=== PATIENT | male | born 1975 | race Hispanic/Latino ===

== ENCOUNTER 2021-04-21 14:50 | Inpatient (IN) | payer SELFPAY ==
[~2021-04-21] VITALS: Ht 180.3 cm; Wt 100.2 kg
[2021-04-21 15:25] VITALS: BP 134/77
[2021-04-21 15:28] LABS: BASOPHILS % (AUTO) 0.4 % (0.0-5.0); EOSINOPHILS % (AUTO) 0.2 % (0.0-8.0); HEMATOCRIT 45.5 % (42-54); LYMPHOCYTES % (AUTO) 12.1 % (21.0-51.0); MEAN CORPUSCULAR HEMOGLOBIN 31.6 pg (27.0-33.0); MEAN CORPUSCULAR HGB CONC 34.7 g/dL (32.0-36.0); MONOCYTES % (AUTO) 6.5 % (3.0-13.0); NEUTROPHILS % (AUTO) 80.2 % (40.0-77.0); PLATELET COUNT (AUTO) 265 K/uL (130-400); RED CELL DISTRIBUTION WIDTH 12.4 % (11.0-15.5); WHITE BLOOD COUNT (AUTO) 16.6 K/uL (4.8-10.8)
[2021-04-21] MEDS ORDERED: 0.9%NACL 50ML IV SCH (15:30)
[2021-04-21] MEDS ORDERED: ZOSYN 3.375GM +NS 50ML IV SCH ×2 (15:30→18:00)
[2021-04-21 15:46] LABS: ALBUMIN 3.4 g/dL (3.5-5.0); BILIRUBIN,TOTAL 0.4 mg/dL (0.2-1.0); CRP QUANTITATIVE 127.6 mg/L (0.00-9.0); POTASSIUM 3.5 mmol/L (3.5-5.1); TOTAL PROTEIN, SERUM 7.9 g/dL (6.0-8.3)
[2021-04-21] MEDS ORDERED: IOHEXOL-350 75 ML VIAL IV ONE (15:52)
[2021-04-21] MEDS ORDERED: 0.9%NACL 1000ML 1,000 ML IV ONE (16:00)
[2021-04-21] MEDS ORDERED: INSULIN HUMULIN R 100 UNIT/ML 3ML IV ONE (16:00)
[2021-04-21 16:12] LABS: APPEARANCE,URINE CLEAR (CLEAR); BILIRUBIN,URINE NEGATIVE (NEGATIVE); COLOR,URINE YELLOW (YELLOW); GLUCOSE, URINE (UA) >=1000 mg/dL (NEGATIVE); KETONES,URINE >=80 mg/dL (NEGATIVE); LEUKOCYTE ESTERASE ,URINE NEGATIVE (NEGATIVE); NITRATE,URINE NEGATIVE (NEGATIVE); OCCULT BLOOD,URINE SMALL (NEGATIVE); PH,URINE 5.5 (5.0-8.0); PROTEIN,URINE NEGATIVE (NEGATIVE); UROBILINOGEN,URINE 0.2 mg/dL (0.2-1.0)
[2021-04-21 16:20] LABS: BACTERIA,URINE None Seen /HPF (None Seen); RBC,URINE None Seen /HPF (0-1); SQUAMOUS EPITHELIAL CELL,UR None Seen /HPF (0-2); WBC,URINE 0-1 /HPF (0-1)
[2021-04-21] MEDS: 0.9%NACL 50ML IV SCH (18:00)
[2021-04-21] MEDS ORDERED: VANCOMYCIN PROTOCOL PER PHARMACY IV SCH (18:30)
[2021-04-21] MEDS ORDERED: LACTATED RINGERS 1000ML 1,000 ML IV SCH (18:30)
[2021-04-21] MEDS ORDERED: 0.9%NACL 1000ML 1,000 ML IV SCH ×2 (18:30→19:00)
[2021-04-21 18:37] VITALS: BP 125/74
[2021-04-21] MEDS ORDERED: VANCOMYCIN 2GM/500ML NS IV ONE ×2 (19:15)
[2021-04-21] MEDS ORDERED: PHARMACY COMMUNICATION MISC SCH (19:30)
[2021-04-21 19:34] LABS: CRP QUANTITATIVE 123.5 mg/L (0.00-9.0)
[2021-04-21 19:45] LABS: CREATININE 0.7 mg/dL (0.5-1.5); POTASSIUM 3.1 mmol/L (3.5-5.1)
[2021-04-21 19:52] VITALS: BP 139/70
[2021-04-21] MEDS ORDERED: POTASSIUM CHLORIDE 10% ELIXIR 20 MEQ/15 ML UDCUP PO ONE (20:30)
[2021-04-21] MEDS ORDERED: KCL 20 MEQ ERTAB PO ONE (20:30)
[2021-04-21 20:32] LABS: AMPHET/METH SCREEN,URINE NEGATIVE (NEGATIVE); BARBITURATE SCREEN, URINE NEGATIVE (NEGATIVE); BENZODIAZEPINES SCREEN,URINE NEGATIVE (NEGATIVE); CANNABINOID SCREEN,URINE POSITIVE (NEGATIVE); COCAINE SCREEN,URINE NEGATIVE (NEGATIVE); OPIATE SCREEN,URINE NEGATIVE (NEGATIVE); PHENCYCLIDINE SCREEN,URINE NEGATIVE (NEGATIVE)
[2021-04-21] MEDS ORDERED: POTASSIUM CHLORIDE 10MEQ/100ML 100 ML IV PRN (21:00)
[2021-04-21] MEDS ORDERED: INSULIN REGULAR, HUMAN 3ML 100 UNIT in 0.9%NACL 100ML 99 ML IV PRN ×2 (21:00)
[2021-04-21] MEDS ORDERED: DEXTROSE 5 %-0.45 % NACL 1,000 ML IV PRN (21:00)
[2021-04-21 22:20] VITALS: BP 117/81
[2021-04-21 22:28] LABS: HEMOGLOBIN A1C 11.9 % (4.0-6.0)
[2021-04-21] MEDS: CLINDAMYCIN IVPB 600MG/50ML 50 ML IV SCH (22:35)
[2021-04-21] MEDS: 0.9%NACL 1000ML 1,000 ML IV SCH (22:35)
[2021-04-21] MEDS: POTASSIUM CHLORIDE 10MEQ/100ML 100 ML IV PRN (22:45)
[2021-04-21 22:59] LABS: ABG BASE EXCESS -8.3 mmol/L (-2.0-3.0); ABG HCO3 14.9 mmol/L (21.0-28.0); ABG OXYGEN SATURATION 96.3 % (95.0-99.0); ABG PCO2 26 mmHg (35-48)
[2021-04-21 23:20] VITALS: BP 124/78
[2021-04-21] MEDS: ZOSYN 3.375GM +NS 50ML IV SCH (23:23)
[2021-04-22] VITALS (34 sets, daily range): BP systolic 107–146; BP diastolic 62–108
[2021-04-22] MEDS ORDERED: INSULIN HUMULIN R 100 UNIT/ML 3ML SQ SCH
[2021-04-22] MEDS: POTASSIUM CHLORIDE 10MEQ/100ML 100 ML IV PRN ×7 (00:25→14:46)
[2021-04-22 00:41] LABS: CREATININE 0.7 mg/dL (0.5-1.5)
[2021-04-22 00:49] LABS: POTASSIUM 2.9 mmol/L (3.5-5.1)
[2021-04-22] MEDS: CLINDAMYCIN IVPB 600MG/50ML 50 ML IV SCH ×3 (04:37→21:43)
[2021-04-22 04:51] LABS: CREATININE 0.7 mg/dL (0.5-1.5)
[2021-04-22 05:07] LABS: POTASSIUM 2.9 mmol/L (3.5-5.1)
[2021-04-22] MEDS: VANCOMYCIN KIT 1 GM/250 ML IV.KIT IV SCH ×2 (05:54→18:33)
[2021-04-22] MEDS: 0.9% NACL 250ML 250 ML IV SCH ×5 (05:54→23:36)
[2021-04-22 07:17] LABS: INR 1.05 (0.85-1.15); PROTHROMBIN TIME 11.4 SEC (9.6-11.6)
[2021-04-22 07:19] LABS: PARTIAL THROMBOPLASTIN TIME 31.2 SEC (26.3-35.5)
[2021-04-22] MEDS: ZOSYN 3.375GM +NS 50ML IV SCH ×3 (07:56→22:22)
[2021-04-22 09:36] LABS: CREATININE 0.6 mg/dL (0.5-1.5); POTASSIUM 3.4 mmol/L (3.5-5.1)
[2021-04-22] MEDS ORDERED: PHARMACY COMMUNICATION MISC SCH (10:00)
[2021-04-22] MEDS: 0.9%NACL 1000ML 1,000 ML IV SCH ×4 (11:32→22:27)
[2021-04-22 12:23] LABS: CREATININE 0.6 mg/dL (0.5-1.5); POTASSIUM 3.3 mmol/L (3.5-5.1)
[2021-04-22] MEDS: 0.9%NACL 50ML IV SCH ×3 (14:27→22:25)
[2021-04-22] MEDS ORDERED: DEXAMETHASONE SOD PHOSPHATE 10MG/ML 1ML VIAL ONE (15:39)
[2021-04-22] MEDS ORDERED: ONDANSETRON 4MG INJ ONE (15:39)
[2021-04-22] MEDS ORDERED: PROPOFOL 10 MG/ML 20ML VIAL IV ONE (15:39)
[2021-04-22] MEDS ORDERED: LIDOCAINE PF 100MG/5ML (2%) SYRINGE 5ML ONE (15:39)
[2021-04-22] MEDS ORDERED: GLYCOPYRROLATE 1 MG/5 ML SYRINGE ONE (15:39)
[2021-04-22] MEDS ORDERED: MIDAZOLAM HCL 1 MG/ML 2ML VIAL ONE (15:39)
[2021-04-22] MEDS ORDERED: NEOSTIGMINE 5MG/5ML SYR IV ONE (15:39)
[2021-04-22] MEDS ORDERED: SUCCINYLCHOLINE 200MG/10ML SYR ONE (15:39)
[2021-04-22] MEDS ORDERED: FENTANYL CITRATE PF 50 MCG/1 ML 2ML VIAL ONE (15:40)
[2021-04-22] MEDS ORDERED: ROCURONIUM 10MG/1ML SYR 10 MG/ML ML ONE (15:40)
[2021-04-22 16:18] LABS: CREATININE 0.6 mg/dL (0.5-1.5); POTASSIUM 3.6 mmol/L (3.5-5.1)
[2021-04-22] MEDS ORDERED: LIDOCAINE HCL 1% 20 ML VIAL ONE (16:24)
[2021-04-22] MEDS ORDERED: BUPIVACAINE/PF 0.25% 30ML VIAL IJ ONE (16:25)
[2021-04-22] MEDS ORDERED: HYDROCODONE/ACETAMINOPHEN 5/325 MG TAB PO PRN (17:30)
[2021-04-22] MEDS ORDERED: INSULIN GLARGINE 100 UNITS/ML 10 ML VIAL SQ ONE (18:00)
[2021-04-22] MEDS: LACTATED RINGERS 1000ML 1,000 ML IV SCH (18:09)
[2021-04-22] MEDS: INSULIN HUMULIN R 100 UNIT/ML 3ML SQ SCH (20:57)
[2021-04-22] MEDS: POTASSIUM CHLORIDE 40MEQ/20ML 40 MEQ in 0.9%NACL 1000ML 1,000 ML IV SCH ×3 (22:24→22:28)
[2021-04-23] VITALS (10 sets, daily range): BP systolic 111–130; BP diastolic 60–86
[2021-04-23] MEDS: 0.9% NACL 250ML 250 ML IV SCH ×4 (02:00→07:48)
[2021-04-23] MEDS: 0.9%NACL 50ML IV SCH ×2 (02:00→07:48)
[2021-04-23] MEDS: POTASSIUM CHLORIDE 40MEQ/20ML 40 MEQ in 0.9%NACL 1000ML 1,000 ML IV SCH ×3 (02:44→21:42)
[2021-04-23] MEDS: CLINDAMYCIN IVPB 600MG/50ML 50 ML IV SCH ×3 (05:28→21:13)
[2021-04-23] MEDS: VANCOMYCIN KIT 1 GM/250 ML IV.KIT IV SCH ×2 (05:28→17:38)
[2021-04-23] MEDS: ZOSYN 3.375GM +NS 50ML IV SCH ×3 (06:01→23:28)
[2021-04-23] MEDS: INSULIN HUMULIN R 100 UNIT/ML 3ML SQ SCH ×6 (06:04→21:12)
[2021-04-23] MEDS: LACTATED RINGERS 1000ML 1,000 ML IV SCH (07:20)
[2021-04-23] MEDS ORDERED: INSULIN HUMULIN R 100 UNIT/ML 3ML SQ SCH (07:30)
[2021-04-23 09:48] LABS: BASOPHILS % (AUTO) 0.6 % (0.0-5.0); EOSINOPHILS % (AUTO) 1.4 % (0.0-8.0); HEMATOCRIT 39.1 % (42-54); LYMPHOCYTES % (AUTO) 20.6 % (21.0-51.0); MEAN CORPUSCULAR HEMOGLOBIN 31.8 pg (27.0-33.0); MEAN CORPUSCULAR VOLUME 90.7 fL (79-99); MONOCYTES % (AUTO) 7.8 % (3.0-13.0); PLATELET COUNT (AUTO) 239 K/uL (130-400); RED BLOOD CELL COUNT(AUTO) 4.31 MIL/uL (4.50-6.20); RED CELL DISTRIBUTION WIDTH 12.5 % (11.0-15.5); WHITE BLOOD COUNT (AUTO) 9.4 K/uL (4.8-10.8)
[2021-04-23 10:00] LABS: ALBUMIN 2.5 g/dL (3.5-5.0); BILIRUBIN,TOTAL 0.4 mg/dL (0.2-1.0); CREATININE 0.6 mg/dL (0.5-1.5); CRP QUANTITATIVE 92.7 mg/L (0.00-9.0); POTASSIUM 3.3 mmol/L (3.5-5.1); TOTAL PROTEIN, SERUM 6.2 g/dL (6.0-8.3)
[2021-04-23] MEDS ORDERED: FLUCONAZOLE 200 MG/NS 100 ML 100 ML IV SCH (10:00)
[2021-04-23 10:52] LABS: ERYTHROCYTE SEDIMENTATION RATE 26 MM/HR (0-15)
[2021-04-23] MEDS ORDERED: INSULIN GLARGINE 100 UNITS/ML 10 ML VIAL SQ ONE (17:00)
[2021-04-23] MEDS ORDERED: 0.9% NACL 250ML 250 ML ONE (17:39)
[2021-04-23] MEDS: KCL 20 MEQ ERTAB PO PRN (17:51)
[2021-04-24] MEDS: KCL 20 MEQ ERTAB PO PRN ×3 (01:20→23:46)
[2021-04-24 04:26] VITALS: BP 118/77
[2021-04-24] MEDS: CLINDAMYCIN IVPB 600MG/50ML 50 ML IV SCH ×3 (05:29→20:25)
[2021-04-24] MEDS ORDERED: 0.9% NACL 250ML 250 ML ONE (05:54)
[2021-04-24] MEDS: VANCOMYCIN KIT 1 GM/250 ML IV.KIT IV SCH (06:03)
[2021-04-24] MEDS: INSULIN HUMULIN R 100 UNIT/ML 3ML SQ SCH ×7 (06:33→20:27)
[2021-04-24 07:30] VITALS: BP 140/93
[2021-04-24] MEDS: POTASSIUM CHLORIDE 40MEQ/20ML 40 MEQ in 0.9%NACL 1000ML 1,000 ML IV SCH ×4 (07:54→23:12)
[2021-04-24] MEDS: ZOSYN 3.375GM +NS 50ML IV SCH ×3 (08:24→20:25)
[2021-04-24 11:00] VITALS: BP 125/80
[2021-04-24 11:13] LABS: CHLAMYDIA DNA N.A.AMPLIFY Negative (Negative)
[2021-04-24] MEDS ORDERED: COMPOUND IV REFRIGERATED 1 EACH IVSOLN MISC PRN (12:00)
[2021-04-24] MEDS: VANCOMYCIN 1.25GM/NS 250ML IVPB SCH ×4 (15:01→23:45)
[2021-04-24 16:00] VITALS: BP 137/77
[2021-04-24] MEDS ORDERED: INSULIN GLARGINE 100 UNITS/ML 10 ML VIAL SQ SCH (17:00)
[2021-04-24 20:09] VITALS: BP 118/68
[2021-04-24] MEDS: MORPHINE 2 MG SYG IVP PRN (20:26)
[2021-04-25] VITALS (7 sets, daily range): BP systolic 111–139; BP diastolic 71–89
[2021-04-25] MEDS: CLINDAMYCIN IVPB 600MG/50ML 50 ML IV SCH ×3 (03:53→20:48)
[2021-04-25] MEDS: ZOSYN 3.375GM +NS 50ML IV SCH ×3 (04:49→20:48)
[2021-04-25 05:21] LABS: BASOPHILS % (AUTO) 1.1 % (0.0-5.0); EOSINOPHILS % (AUTO) 1.7 % (0.0-8.0); HEMATOCRIT 41.4 % (42-54); LYMPHOCYTES % (AUTO) 33.7 % (21.0-51.0); MEAN CORPUSCULAR HEMOGLOBIN 31.1 pg (27.0-33.0); MEAN CORPUSCULAR HGB CONC 34.3 g/dL (32.0-36.0); MEAN CORPUSCULAR VOLUME 90.6 fL (79-99); MONOCYTES % (AUTO) 9.6 % (3.0-13.0); NEUTROPHILS % (AUTO) 52.5 % (40.0-77.0); PLATELET COUNT (AUTO) 287 K/uL (130-400); RED BLOOD CELL COUNT(AUTO) 4.57 MIL/uL (4.50-6.20); RED CELL DISTRIBUTION WIDTH 12.3 % (11.0-15.5); WHITE BLOOD COUNT (AUTO) 7.8 K/uL (4.8-10.8)
[2021-04-25 05:51] LABS: CREATININE 0.7 mg/dL (0.5-1.5); POTASSIUM 3.7 mmol/L (3.5-5.1)
[2021-04-25] MEDS: INSULIN HUMULIN R 100 UNIT/ML 3ML SQ SCH ×7 (06:15→20:49)
[2021-04-25] MEDS: KCL 20 MEQ ERTAB PO PRN ×2 (07:31→19:31)
[2021-04-25] MEDS ORDERED: INSULIN GLARGINE 100 UNITS/ML 10 ML VIAL SQ SCH (17:00)
[2021-04-25] MEDS: VANCOMYCIN 1.25GM/NS 250ML IVPB SCH ×2 (17:07)
[2021-04-26] MEDS: VANCOMYCIN 1.25GM/NS 250ML IVPB SCH ×2 (00:38)
[2021-04-26] MEDS: CLINDAMYCIN IVPB 600MG/50ML 50 ML IV SCH (03:18)
[2021-04-26 04:14] VITALS: BP 114/65
[2021-04-26 05:05] LABS: BASOPHILS % (AUTO) 1.1 % (0.0-5.0); EOSINOPHILS % (AUTO) 2.3 % (0.0-8.0); HEMATOCRIT 41.9 % (42-54); LYMPHOCYTES % (AUTO) 26.7 % (21.0-51.0); MEAN CORPUSCULAR HEMOGLOBIN 31.3 pg (27.0-33.0); MEAN CORPUSCULAR HGB CONC 33.9 g/dL (32.0-36.0); MEAN CORPUSCULAR VOLUME 92.3 fL (79-99); MONOCYTES % (AUTO) 10.6 % (3.0-13.0); NEUTROPHILS % (AUTO) 57.7 % (40.0-77.0); PLATELET COUNT (AUTO) 281 K/uL (130-400); RED BLOOD CELL COUNT(AUTO) 4.54 MIL/uL (4.50-6.20); RED CELL DISTRIBUTION WIDTH 12.3 % (11.0-15.5); WHITE BLOOD COUNT (AUTO) 9.2 K/uL (4.8-10.8)
[2021-04-26 05:22] LABS: CREATININE 0.7 mg/dL (0.5-1.5); POTASSIUM 3.7 mmol/L (3.5-5.1)
[2021-04-26] MEDS: INSULIN HUMULIN R 100 UNIT/ML 3ML SQ SCH ×6 (05:50→16:49)
[2021-04-26] MEDS: KCL 20 MEQ ERTAB PO PRN (06:14)
[2021-04-26] MEDS: ZOSYN 3.375GM +NS 50ML IV SCH (06:14)
[2021-04-26 08:10] VITALS: BP 126/77
[2021-04-26 10:41] VITALS: BP 114/71
[2021-04-26] MEDS ORDERED: METRONIDAZOLE 500 MG TABLET PO SCH (13:00)
[2021-04-26] MEDS ORDERED: CEFUROXIME AXETIL 250 MG TABLET PO SCH (13:00)
[2021-04-26 15:51] VITALS: BP 117/87
[2021-04-26] MEDS ORDERED: INSULIN GLARGINE 100 UNITS/ML 10 ML VIAL SQ SCH (17:00)
[2021-04-26] MEDS: MORPHINE 2 MG SYG IVP PRN (17:59)
[2021-04-26] MEDS ORDERED: SYRI-1628 MC (18:54)
[2021-04-26] MEDS ORDERED: METR500T PO (18:54)
[2021-04-26] MEDS ORDERED: INSLAN SQ (18:54)
[2021-04-26] MEDS ORDERED: HYDR-4060 PO (18:54)
[2021-04-26] MEDS ORDERED: CEFU500T67 PO (18:54)
[2021-04-26] MEDS ORDERED: INSU100V3 SQ (18:54)
[2021-04-26] MEDS ORDERED: IBUP-2077 PO (18:56)
== END 2021-04-26 19:55 | disposition home or self-care (01) | DRG 871 ==
LOC: EDH 14:50 → EDHIP 14:51 → 2CH 04-22 03:27 → 3BH 04-23 11:07
PROVIDERS: ADMIT Internal Medicine; ATTEND Internal Medicine
PROC: 0Y900ZZ Drainage of Right Buttock, Open Approach (ICD-10-PCS; 2021-04-22)
PROC: 0Y910ZZ Drainage of Left Buttock, Open Approach (ICD-10-PCS; principal; 2021-04-22 16:33)
DX: A41.9 Sepsis, unspecified organism (principal); E11.10 Type 2 diabetes mellitus with ketoacidosis without coma; K61.1 Rectal abscess; L03.315 Cellulitis of perineum; L02.31 Cutaneous abscess of buttock; K57.30 Diverticulosis of large intestine without perforation or abscess without bleeding; L02.92 Furuncle, unspecified; F12.10 Cannabis abuse, uncomplicated; E87.6 Hypokalemia; K59.00 Constipation, unspecified; B37.42 Candidal balanitis; E66.9 Obesity, unspecified; E86.1 Hypovolemia; Z79.4 Long term (current) use of insulin; Z83.3 Family history of diabetes mellitus; Z68.30 Body mass index [BMI] 30.0-30.9, adult
CPT/HCPCS: 36415; 36600; 71045; 74177; 80048; 80053; 80202; 80305; 81001; 82010; 82803; 82948; 83036; 83605; 83735; 84145; 84484; 85025; 85610; 85651; 85730; 86140; 87040; 87070; 87076; 87205; 87486; 87797; 93005; G0378; J0330; J1100; J1450; J1815; J2001; J2250; J2405; J2543; J2704; J2710; J3010; J3370; J3480; J3490; J7030; J7040; J7042; J7050; J7120; Q9967

== ENCOUNTER → 2021-05-02 | Outpatient (CLI) | payer SELFPAY ==
[~2021-05-02] MED LIST: CEFU500T67 PO; HYDR-4060 PO; IBUP-2077 PO; INSLAN SQ; INSU100V3 SQ; LIDOCAINE HCL 4% LTA SOL 4 ML VIAL TP ONE; METR500T PO; SYRI-1628 MC
== END | disposition home or self-care (01) ==
LOC: WHH 13:29
PROVIDERS: ATTEND Family Medicine
DX: T81.89XA Other complications of procedures, not elsewhere classified, initial encounter (principal); L02.31 Cutaneous abscess of buttock; L02.215 Cutaneous abscess of perineum; E11.628 Type 2 diabetes mellitus with other skin complications; E66.9 Obesity, unspecified; F12.10 Cannabis abuse, uncomplicated; Z79.4 Long term (current) use of insulin; Y83.8 Other surgical procedures as the cause of abnormal reaction of the patient, or of later complication, without mention of misadventure at the time of the procedure; Y92.238 Other place in hospital as the place of occurrence of the external cause
CPT/HCPCS: 99215; A4450

== ENCOUNTER → 2021-05-09 | Outpatient (CLI) | payer SELFPAY ==
[~2021-05-09] MED LIST changes: +HONEY 1 APPL/ML TUBE TP ONE
== END | disposition home or self-care (01) ==
LOC: WHH 10:57
PROVIDERS: ATTEND Family Medicine
DX: T81.89XD Other complications of procedures, not elsewhere classified, subsequent encounter (principal); L02.31 Cutaneous abscess of buttock; L02.215 Cutaneous abscess of perineum; E11.628 Type 2 diabetes mellitus with other skin complications; E66.9 Obesity, unspecified; F12.10 Cannabis abuse, uncomplicated; Z79.4 Long term (current) use of insulin; Y83.8 Other surgical procedures as the cause of abnormal reaction of the patient, or of later complication, without mention of misadventure at the time of the procedure
CPT/HCPCS: 99214

== ENCOUNTER → 2021-05-16 | Outpatient (CLI) | payer SELFPAY ==
[~2021-05-16] MED LIST changes: -HONEY 1 APPL/ML TUBE TP ONE; -LIDOCAINE HCL 4% LTA SOL 4 ML VIAL TP ONE
== END | disposition home or self-care (01) ==
LOC: WHH 10:58
PROVIDERS: ATTEND Family Medicine
DX: T81.89XD Other complications of procedures, not elsewhere classified, subsequent encounter (principal); L02.31 Cutaneous abscess of buttock; L02.215 Cutaneous abscess of perineum; E11.628 Type 2 diabetes mellitus with other skin complications; E66.9 Obesity, unspecified; F12.10 Cannabis abuse, uncomplicated; Z79.4 Long term (current) use of insulin; Y83.8 Other surgical procedures as the cause of abnormal reaction of the patient, or of later complication, without mention of misadventure at the time of the procedure
CPT/HCPCS: 99214

== ENCOUNTER → 2021-05-23 | Outpatient (CLI) | payer SELFPAY | END | disposition home or self-care (01) | LOC: WHH 11:07 | PROVIDERS: ATTEND Family Medicine | DX: K61.1 Rectal abscess (principal); L02.215 Cutaneous abscess of perineum; E11.628 Type 2 diabetes mellitus with other skin complications; E66.9 Obesity, unspecified; F12.10 Cannabis abuse, uncomplicated; Z79.4 Long term (current) use of insulin; Z68.30 Body mass index [BMI] 30.0-30.9, adult | CPT/HCPCS: 99214 ==